=== PATIENT | male | born 1965 | race Caucasian/White ===

== ENCOUNTER → 2021-07-11 | Outpatient (CLI) | payer OTHER ==
--- NOTE | 2021-07-15 06:21 | PE ---
EXAMINATION TYPE: PET CT fusion skull to thigh DATE OF EXAM: 07/11/2021 COMPARISON: NONE HISTORY: Solitary pulmonary nodule, abnormal outside CT TECHNIQUE: Following the intravenous administration of 7.36 mCi of F-18 FDG, whole body images are p erformed from the skull base to the midthigh. Images are reviewed on the computer in the coronal, ax ial, and sagittal planes. Reconstructed rotating images are created on independent workstation and r eviewed on the computer. A localization and attenuation correction CT is performed in conjunction w ith the PET scan. Blood glucose level equals 120. SCAN: Initial Scan FINDINGS: SKULL BASE AND NECK: No areas of abnormal hypermetabolic uptake. CHEST, MEDIASTINUM, AND HILAR REGION: Low lung volumes. No suspicious hypermetabolic nodules or jimmy s. Few scattered smaller nodules under 1 cm are felt to be present for reference right midlung axial image 98. There are prominent mildly hypermetabolic lymph nodes in the prevascular space, right parat sandra region, AP window, bilateral hilar region, and subcarinal lymph nodes. Max SUV is 2.89. ABDOMEN AND PELVIS: No adrenal masses. Normal excretion. Nonspecific bowel uptake throughout the abdo men and pelvis. No definitive abnormal hypermetabolic uptake. OSSEOUS STRUCTURES: No definitive abnormal hypermetabolic uptake. OTHER CT: Moderate calcified plaque bilateral carotid bulb level. Severe three-vessel coronary artery calcification. Enlarged prostate consistent with BPH. Small fat-containing left inguinal hernia. IMPRESSION: Prominent and slightly enlarged mildly hypermetabolic thoracic lymph nodes favor an infec tious or inflammatory etiology. Correlate clinically. No definitive hypermetabolic greater than 1.0 c m pulmonary nodules or masses. Advise CT and/or PET CT follow-up in 6-12 months time to reassess.
== END | disposition home or self-care (01) ==
LOC: RADPETMAIN 13:11
PROVIDERS: ATTEND Internal Medicine Critical Care Medicine
DX: R91.1 Solitary pulmonary nodule (principal); R59.0 Localized enlarged lymph nodes
CPT/HCPCS: 78815; A9552

== ENCOUNTER → 2022-02-02 | Outpatient (CLI) | payer OTHER ==
[2022-02-02 08:26] LABS: African American GFR (CKD) >90 (>60 ml/min/1.73 sqM); Blood Urea Nitrogen 12 mg/dL (9-20); Non-African American GFR(CKD) >90 (>60 ml/min/1.73 sqM)
--- NOTE | 2022-02-02 11:12 | CT ---
EXAMINATION TYPE: CT chest w con DATE OF EXAM: 02/02/2022 COMPARISON: PET CT 07/11/2021 HISTORY: 56 year-old male R91.1 Lung nodule. TECHNIQUE: Contiguous axial scanning of the chest after the administration of 70ml mL of Isovue 300. Coronal/sagittal reconstructions performed. CT DLP: 597mGycm. Automatic exposure control utilized for a dose reduction. FINDINGS: 8 mm peripherally calcified left adrenal nodule was present previously. Heart normal size without pericardial effusion. Extensive three-vessel coronary artery calcifications are present and a marker for coronary artery disease. Ectatic ascending aorta at 3.8 cm. Ectatic descending thoracic aorta 3.2 cm. Minimal atherosclerotic arch calcifications. Variant direct takeoff left vertebral artery from the aortic arch. Mediastinal lymphadenopathy redemonstrated. Right paratracheal measuring up to 1.8 cm. AP window katrin uring 1.0 cm. Lower left paratracheal measuring 1.4 cm. Subcarinal measuring up to 2.0 cm. These enla rged lymph nodes are unchanged. No increasing lymphadenopathy seen. Mild diffuse bronchial wall thickening. 3 mm right middle pulmonary nodule, axial image 28. Additional anterior right midlung nodularity measuring up to 9 mm in adjacent formalin meters, axial image 30 and 29, unchanged. Anterior left midlung nodularity measuring 6 mm, axial image 30, unchanged. 4 mm pulmonary nodule posterior left upper lung along the major fissure, axial image 17 is unchanged. Scattered mild strandy atelectasis. Mild dependent atelectasis. No consolidation or pleural effusion. Low density left adrenal nodularity measuring 2.1 cm unchanged. Likely underlying adrenal adenoma. Ri ght adrenal thickening is unchanged. Bones: There are mild degenerative disc disease. No osseous destructive process. IMPRESSION: 1. Scattered pulmonary nodules measuring up to 9 mm unchanged for 7 months. Additional mediastinal ly mphadenopathy measuring up to 2.0 cm also unchanged for 7 months. Correlate to exclude some considera tions such as underlying connective tissue disorder, granulomatous disease, sarcoidosis, or systemic fungal/mycobacterial infection. Ongoing surveillance follow-up advised to exclude any indolent neopl asm such as lymphoma. 2. CAD with extensive three-vessel coronary artery calcifications.
== END | disposition home or self-care (01) ==
LOC: RADCTMAIN 07:34
PROVIDERS: ATTEND Internal Medicine Critical Care Medicine
DX: I25.10 Atherosclerotic heart disease of native coronary artery without angina pectoris (principal); R91.8 Other nonspecific abnormal finding of lung field; R59.0 Localized enlarged lymph nodes
CPT/HCPCS: 82565; 84520; 71260; 36415; Q9967

== ENCOUNTER → 2022-08-12 | Outpatient (CLI) | payer OTHER ==
[2022-08-12 08:37] LABS: African American GFR (CKD) >90 (>60 ml/min/1.73 sqM); Blood Urea Nitrogen 11 mg/dL (9-20); Non-African American GFR(CKD) >90 (>60 ml/min/1.73 sqM)
--- NOTE | 2022-08-12 11:47 | CT ---
EXAMINATION TYPE: CT chest w con DATE OF EXAM: 08/12/2022 COMPARISON: Prior chest CT dated January 02, 2022 and older PET/CT July 11, 2021 HISTORY: Lung nodule. CT DLP: 446.2 mGycm. Automated Exposure Control for Dose Reduction was Utilized. TECHNIQUE: CT scan of the thorax is performed following with IV Contrast, patient injected with 100m l mL of Isovue 300. FINDINGS: LUNGS: The lungs are grossly clear, there is no concerning new or enlarging greater than 5 mm parench ymal mass or nodule identified. Stable small nodules for reference is a 6 mm groundglass nodule in the left midlung anteriorly axial image 27 and 8 mm groundglass nodule in the right midlung anteriorl y axial image 29. Stable 4 to 5 mm right middle lobe nodule axial image 32. There is no pleural effus ion or pneumothorax seen. The tracheobronchial tree is patent. MEDIASTINUM: There are persistent enlarged bilateral hilar and mediastinal lymph nodes. Reference is a 2.0 x 1.5 cm right paratracheal lymph node that is unchanged in size and appearance from prior stud y. No cardiomegaly or pericardial effusion is seen. Severe Coronary artery calcification is redemon strated. There is rim calcified subcentimeter left thyroid nodule posteriorly axial image 6 redemonst rated. OTHER: Stable 2.2 cm low dense left adrenal mass axial image 55 and slight low dense nodular thickeni ng to right adrenal gland favoring benign etiology redemonstrated. IMPRESSION: Stable small nodules and abnormal enlarged thoracic adenopathy. No new or enlarging great er than 5 mm pulmonary nodule. No significant change from prior CT.
== END | disposition home or self-care (01) ==
LOC: RADCTMAIN 07:51
PROVIDERS: ATTEND Internal Medicine Critical Care Medicine
DX: R91.8 Other nonspecific abnormal finding of lung field (principal); R59.0 Localized enlarged lymph nodes
CPT/HCPCS: 82565; 84520; 71260; 36415; Q9967

== ENCOUNTER → 2023-02-01 | Outpatient (CLI) | payer OTHER ==
[2023-02-01 09:02] LABS: African American GFR (CKD) >90 (>60 ml/min/1.73 sqM); Blood Urea Nitrogen 17 mg/dL (9-20); Non-African American GFR(CKD) >90 (>60 ml/min/1.73 sqM)
--- NOTE | 2023-02-01 09:57 | CT ---
EXAMINATION TYPE: CT chest w con CT DLP: 440 mGycm, Automated exposure control for dose reduction was used. DATE OF EXAM: 02/01/2023 9:39 AM COMPARISON: Multiple CT chest with most recent 08/12/2022, PET/CT 07/11/2021. CLINICAL INDICATION:Male, 57 years old with history of R91.1 lung nodule; PHH, lung nodule TECHNIQUE: Multiple axial images were obtained through the chest following the administration of 100 cc of Isovue 300. . Coronal and sagittal reformats reviewed. FINDINGS: LUNGS/ PLEURA: No pleural effusion, pneumothorax, focal consolidation. Stable pulmonary nodules from prior examination when measuring with similar technique. Examples include a left midlung 6 mm nodule (series 4, image 30), a right middle lobe 4 mm nodule (series 4, age 29), and a right midlung 1.4 cm nodule along the minor fissure (series 4, image 26). No new or enlarging pulmonary nodules. AIRWAY: Patent and unremarkable.. HEART: Size within normal limits. No pericardial effusion. Moderate to severe coronary artery calcifi cations redemonstrated. MEDIASTINUM: Stable enlarged bilateral hilar mediastinal lymph nodes with examples including a right paratracheal lymph node measuring 1.6 centers short axis and a subcarinal lymph node measuring 1.7 cm short axis. VASCULATURE: No aortic aneurysm. Mild atherosclerotic calcification of the aorta and its branches. MUSCULOSKELETAL: Mild disc degeneration changes are present throughout the thoracolumbar spine. No ac everett osseous and amounted. SOFT TISSUES/LYMPH NODES: Unremarkable. LOWER NECK: Stable rim calcified nodule within the left thyroid lobe posteriorly.. UPPER ABDOMEN: Diffuse low-attenuation to the liver parenchyma consistent with hepatic steatosis. Sta ble 2.2 cm low dense left adrenal nodule. Similar nodular thickening of the right adrenal gland. Favo red to represent benign adenomas. IMPRESSION: 1. Stable pulmonary nodules from prior exams. No new or enlarging pulmonary nodules. 2. Stable nonspecific mediastinal and bilateral hilar adenopathy.
== END | disposition home or self-care (01) ==
LOC: RADCTMAIN 07:59
PROVIDERS: ATTEND Internal Medicine Critical Care Medicine
DX: R91.8 Other nonspecific abnormal finding of lung field (principal); R59.0 Localized enlarged lymph nodes
CPT/HCPCS: 82565; 84520; 71260; 36415; Q9967

== ENCOUNTER → 2024-02-09 | Outpatient (CLI) | payer OTHER ==
[2024-02-09 11:02] LABS: African American GFR (CKD) >90 (>60 ml/min/1.73 sqM); Blood Urea Nitrogen 11 mg/dL (9-20); Non-African American GFR(CKD) >90 (>60 ml/min/1.73 sqM)
--- NOTE | 2024-02-09 12:48 | CT ---
EXAMINATION TYPE: CT chest w con CT DLP: 423.8 mGycm, Automated exposure control for dose reduction was used. DATE OF EXAM: 02/09/2024 11:35 AM COMPARISON: Multiple CT chest with most recent 02/01/2023, PET CT 07/11/2021 CLINICAL INDICATION:Male, 58 years old with history of R91.1 SOLITARY PULMONARY NODULE; PHH, f/u nodu les TECHNIQUE: Multiple axial images were obtained through the chest following the administration of 100 cc of Isovue 300. . Coronal and sagittal reformats reviewed. FINDINGS: LUNGS/ PLEURA: No pleural effusion, pneumothorax, focal consolidation. Minimal dependent bilateral lo wer lobe subsegmental atelectasis. Stable pulmonary nodules from prior examination when measuring wit h similar technique. Examples include a left midlung 7 mm nodule (series 4, image 29), a right middle lobe 5 mm nodule (series 4, age 29), and a right midlung 1.3 cm nodule along the minor fissure (seri es 4, image 30). No new or enlarging pulmonary nodules. AIRWAY: Patent and unremarkable.. HEART: Size within normal limits. No pericardial effusion. Moderate to severe coronary artery calcifi cations redemonstrated. MEDIASTINUM: Stable enlarged bilateral hilar and mediastinal lymph nodes with examples including a ri ght paratracheal lymph node measuring 1.6 cm short axis and a subcarinal lymph node measuring 1.6 cm short axis. VASCULATURE: Four-vessel aortic arch. No aortic aneurysm. Mild atherosclerotic calcification of the a sami and its branches. MUSCULOSKELETAL: Mild disc degeneration changes are present throughout the thoracolumbar spine. No ac everett osseous and amounted. SOFT TISSUES/LYMPH NODES: Unremarkable. LOWER NECK: Stable rim calcified nodule within the left thyroid lobe posteriorly. UPPER ABDOMEN: Diffuse low-attenuation to the liver parenchyma consistent with hepatic steatosis. Sta ble 2.1 cm low dense left adrenal nodule. Similar nodular thickening of the right adrenal gland. Favo red to represent benign adenomas. IMPRESSION: 1. Stable pulmonary nodules from prior exams. No new or enlarging pulmonary nodules. 2. Stable nonspecific mediastinal and bilateral hilar adenopathy. . [facility], , 02/09/2024 12:45 PM
== END | disposition home or self-care (01) ==
LOC: RADCTMAIN 10:12
PROVIDERS: ATTEND Internal Medicine Critical Care Medicine
DX: R91.1 Solitary pulmonary nodule (principal); R91.8 Other nonspecific abnormal finding of lung field; R59.0 Localized enlarged lymph nodes; I70.0 Atherosclerosis of aorta
CPT/HCPCS: 82565; 84520; 71260; 36415; Q9967